=== PATIENT | male | born 1995 | race American Indian/Alaskan Native ===

== ENCOUNTER 2018-06-11 11:57 | Emergency (ER) | payer SELFPAY ==
[2018-06-11 12:06] VITALS: BP 140/79
[2018-06-11] MEDS ORDERED: MOTRIN PO ONE (12:21)
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
[2018-06-11] MEDS ORDERED: FLEXERIL PO ONE (12:52)
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
== END 2018-06-11 14:12 | disposition home or self-care (01) ==
LOC: ED 11:57
DX: S39.012A Strain of muscle, fascia and tendon of lower back, initial encounter (principal); K59.00 Constipation, unspecified; V49.59XA Passenger injured in collision with other motor vehicles in traffic accident, initial encounter; Y93.89 Activity, other specified; Y92.89 Other specified places as the place of occurrence of the external cause; Y99.8 Other external cause status
CPT/HCPCS: 72100; 99283

== ENCOUNTER 2019-08-20 12:40 | Emergency (ER) | payer SELFPAY ==
[2019-08-20 13:27] VITALS: BP 134/68
--- NOTE | 2019-08-20 13:46 | Emergency Department Report ---
Chief Complaint: Medical Clearance Stated Complaint: CHECK UP Time Seen by Provider: 08/20/19 13:42 - Exam Vital Signs: Vital Signs 08/20/19 13:24 Temperature 98.5 F Pulse Rate 71 Respiratory 18 Rate Blood Pressure 134/68 O2 Sat by Pulse 99 Oximetry MSE screening note: Focused history and physical exam performed. Due to findings the following was ordered: 23 yo male with no current complaints. States his sexual partner is + for Gonorrhea. He denies penile pain, no discharge, no dysuria no abdominal pain, no n/v/d. Pt referred out to [facility]. ED Disposition for MSE Clinical Impression: Possible exposure to STD Disposition: Z- MED SCREENING EXAM-LEFT Is pt being admited?: No Does the pt Need Aspirin: No Condition: Stable Additional Instructions: Follow up with your doctor or [facility] evaluation and treatment. Your examination today is not a medical emergency. Please follow up as instructed. Referrals: PRIMARY CARE, [Primary Care Provider] - 3-5 Days Time of Disposition: 13:49
== END 2019-08-20 14:35 | disposition left against medical advice (07) ==
LOC: ED 12:40
DX: Z20.2 Contact with and (suspected) exposure to infections with a predominantly sexual mode of transmission (principal)